=== PATIENT | male | born 1975 | race Caucasian/White ===

== ENCOUNTER 2020-09-18 20:30 | Emergency (ER) | payer OTHER ==
[~2020-09-18] VITALS: Ht 172.7 cm; Wt 77.3 kg
[2020-09-18 20:45] VITALS: BP 131/85
== END 2020-09-18 21:30 | disposition home or self-care (01) ==
LOC: ER 20:31
DX: R50.9 Fever, unspecified (principal); Z20.822 Contact with and (suspected) exposure to COVID-19
CPT/HCPCS: 87635; 99283; C9803

== ENCOUNTER 2021-04-11 09:19 | Emergency (ER) | payer BC, OTHER ==
[~2021-04-11] VITALS: Ht 172.7 cm; Wt 75.0 kg
[2021-04-11] MEDS ORDERED: normal saline 1000ML IV soln IVB ONE (09:20)
[2021-04-11] MEDS ORDERED: ondansetron/PF 4mg/2ml inj IV ONE (09:35)
[2021-04-11] MEDS ORDERED: morphine 4 MG/ML inj SYRINge IV PRN (09:35)
--- NOTE | 2021-04-11 09:45 | NUR ---
PT REFUSED ZOFRAN AND MORPHINE INJ AT THIS TIME.WE STILL HAVE THEM ON BOARD JUST IN CASE PT COND CHANGE.
--- NOTE | 2021-04-11 09:50 | NUR ---
TO CT SCAN.
[2021-04-11 09:52] LABS: APTT 23 SECONDS (22-32); BASOPHILS # (AUTO) 0.1 X10'3 (0-0.2); BASOPHILS % (AUTO) 0.5 % (0-1); D-DIMER 0.31 MG/L FEU (0-0.50); EOSINOPHILS # (AUTO) 0.1 X10'3 (0-0.9); EOSINOPHILS % (AUTO) 0.8 % (0-6); HEMATOCRIT 43.1 % (42.0-52.0); HEMOGLOBIN 14.6 g/dl (14.0-17.9); LYMPHOCYTES # (AUTO) 3.7 X10'3 (1.1-4.8); LYMPHOCYTES % (AUTO) 29.2 % (21-51); MEAN CORPUSCULAR HEMOGLOBIN 30.5 PG (27.0-31.0); MEAN CORPUSCULAR HGB CONC 33.9 g/dL (33.0-36.5); MEAN CORPUSCULAR VOLUME 90.1 FL (78-98); MEAN PLATELET VOLUME 8.1 FL (7.4-10.4); MONOCYTES # (AUTO) 0.7 X10'3 (0-0.9); MONOCYTES % (AUTO) 5.4 % (2-12); NEUTROPHILS % (AUTO) 64.1 % (42-75); PLATELET COUNT 303 X10'3 (140-440); RED BLOOD COUNT 4.79 X10'6 (4.70-6.10); RED CELL DISTRIBUTION WIDTH 13.3 % (11.5-14.5); WHITE BLOOD COUNT 12.6 X10'3 (4.5-11.0)
--- NOTE | 2021-04-11 09:52 | NUR ---
PT BACK FROM CT SCAN.
[2021-04-11 10:09] LABS: ALBUMIN 4.1 G/DL (3.4-5.0); ALKALINE PHOSPHATASE 64 IU/L (46-116); ANION GAP 11 (8-16); BILIRUBIN,TOTAL 0.6 MG/DL (0.1-1.0); BLOOD UREA NITROGEN 15 MG/DL (7-18); BUN/CREATININE RATIO 15.2 (5.4-32.0); C-REACTIVE PROTEIN 0.19 MG/DL (0.0-0.5); CALCIUM 9.2 MG/DL (8.5-10.1); CHLORIDE 102 MMOL/L (99-107); CREATININE 0.99 MG/DL (0.60-1.10); GLUCOSE 151 MG/DL (70-104); LIPASE 190 U/L (73-393); MAGNESIUM 2.3 MG/DL (1.5-2.4); POTASSIUM 4.4 MMOL/L (3.5-5.1); SODIUM 138 MMOL/L (135-145); TOTAL CARBON DIOXIDE 24.7 MMOL/L (24-32); TOTAL PROTEIN 8.2 G/DL (6.4-8.2); eGFR 82 ML/MIN
[2021-04-11] MEDS ORDERED: METR-159 PO (10:37)
[2021-04-11] MEDS ORDERED: CIPR-259 PO (10:37)
[2021-04-11 10:39] LABS: HEMOGLOBIN A1C 5.8 % (4.5-6.2)
[2021-04-11] MEDS ORDERED: ONDA4TAB12 PO (10:53)
[2021-04-11 10:55] LABS: CHOL/HDL RATIO 5.5 (0.00-4.99); CHOLESTEROL 205 MG/DL (0-200); HDL CHOLESTEROL 37 MG/DL (35-60); LDL CHOLESTEROL 126 MG/DL (50-100); TRIGLYCERIDES 150 MG/DL (20-135)
[2021-04-11 11:16] LABS: ALANINE AMINOTRANSFERASE 73 U/L (12-78); ASPARTATE AMINO TRANSFERASE 42 U/L (10-37)
[2021-04-11] MEDS ORDERED: OMEP40CA21 PO (12:13)
[2021-04-11 12:34] VITALS: BP 152/86
== END 2021-04-11 12:00 | disposition home or self-care (01) ==
LOC: EEVIPCON 09:19 → ER 09:19
DX: R10.33 Periumbilical pain (principal); Z20.822 Contact with and (suspected) exposure to COVID-19; R11.0 Nausea; K52.9 Noninfective gastroenteritis and colitis, unspecified; E78.5 Hyperlipidemia, unspecified; Z79.2 Long term (current) use of antibiotics; Z79.899 Other long term (current) drug therapy
CPT/HCPCS: 36415; 74176; 80053; 80061; 83036; 83605; 83690; 83735; 84145; 84443; 84484; 85025; 85379; 85610; 85651; 85730; 86140; 87635; 93005; 99285; C9803; J7030

== ENCOUNTER 2023-06-27 10:58 | Outpatient (CLI) | payer BC ==
[~2023-06-27 10:58] MED LIST: ONDA4TAB12 PO
== END 2023-06-27 23:59 | disposition home or self-care (01) ==
LOC: RAD 10:58
PROVIDERS: ATTEND Student in an Organized Health Care Education/Training Program
DX: Z13.6 Encounter for screening for cardiovascular disorders (principal); E78.5 Hyperlipidemia, unspecified; I70.0 Atherosclerosis of aorta; I51.7 Cardiomegaly
CPT/HCPCS: 75571